=== PATIENT | female | born 1940 | race Caucasian/White ===

== ENCOUNTER → 2022-03-01 | Day surgery (SDC) | payer OTHER ==
[~2022-03-01] VITALS: Ht 160 cm; Wt 66.2 kg
[~2022-03-01] MED LIST: AMLODIPINE BESYL5 MG PO; LISINOPRIL-HCT1 EACH PO
[2022-03-01 10:25] VITALS: BP 122/59
[2022-03-01 11:42] VITALS: BP 140/50
[2022-03-01 11:57] VITALS: BP 135/49; BP 139/52
[2022-03-01 12:12] VITALS: BP 146/47
== END | disposition home or self-care (01) ==
LOC: SDC 02-24 13:15
PROVIDERS: ATTEND Ophthalmology
DX: H25.812 Combined forms of age-related cataract, left eye (principal); I10 Essential (primary) hypertension; Z90.710 Acquired absence of both cervix and uterus; Z79.899 Other long term (current) drug therapy